=== PATIENT | male | born 1990 | race Caucasian/White ===

== ENCOUNTER 2023-04-21 18:07 | Emergency (ER) | payer BC, SELFPAY ==
[2023-04-21 18:08] VITALS: BP 140/90; PULSE 92; RESP 18; TEMP 36.3; O2SAT 100; BMI 45.2
--- NOTE | 2023-04-21 19:30 | EX.ED.GENINJ ---
HPI History of Present Illness Chief Complaint: Laceration PFSH PFSH Allergy/AdvReac Type Severity Reaction Status Date / Time No Known Allergies Allergy Verified 04/21/23 18:09 Social History Smoking Status: Never smoker EXAM Physical Exam Const Vital Signs: 04/21/23 18:08 Temperature 97.3 F L Temperature Source Temporal Pulse Rate 92 Respiratory Rate 18 Blood Pressure 140/90 H Blood Pressure Mean 106 Pulse Ox 100 Oxygen Delivery Method Room Air MDM MDM MDM Narrative Medical decision making narrative: HISTORY OF PRESENT ILLNESS: 32-year-old male here with concern for laceration. Notes mechanical fall and laceration left forearm REVIEW OF SYSTEMS: Pertinent positives: Laceration Pertinent negatives: Numbness tingling loss of sensation PHYSICAL EXAM: Nursing triage notes reviewed, Vital signs reviewed Constitutional: please see mdm Extremities: No edema Neuro: Intact 5/5 strength with ok sign (median), intact finger abduction (ulnar) intact wrist extension (radial n). Intact sensation in the radial, ulnar, and median nerve distributions. Skin: Linear laceration noted to left forearm that is superficial. MEDICAL DECISION MAKING: Chief Complaint: Laceration External records reviewed: No documented tetanus [facility] Narrative: Patient was hemodynamically stable, afebrile, nontoxic-appearing. Left mid forearm laceration was hemostatic. The patient suffered lacerations to the left mid forearm. There is no evidence to suggest foreign bodies were history and exam. Visual and tactile exams are unremarkable. There was no evidence of neurovascular injury. Patient had a normal distal vascular exam, and had full normal motor and sensory exams. There was also no evidence of tendon injury, with normal distal full range of motion, flexion, extension, abduction, abduction. There is no evidence of local joint space involvement at this time patient was irrigated with copious sterile normal saline and primary. Performed please see procedure note. The patient was given signs and symptoms warnings for infection, such as increasing pain, redness, swelling, associated heat, pus or fever. Patient was given instructions for timely follow-up for removal. Patient agreed with the plan of care Procedure: Laceration repair. The procedure was performed by myself. Indication: Wound repair Risks and benefits: risks, benefits and alternatives were discussed Consent: Consent was obtained. Wound Details: Approximate 3 cm linear laceration to the left mid forearm Anesthesia: None Wound prep: Patient was prepped and draped in the usual sterile fashion. Tetanus: Updated within 5 years Irrigation Solution: Saline Wound Preparation: Copious irrigation with tap water, chlorhexidine The wound was explored to its base in a bloodless field. Procedure Description: Approximated wound, applied Dermabond and Steri-Strips with good approximation. Patient tolerated the procedure well with no immediate complications The patient and/or family, caregivers express understanding. The patient and/or family, caregivers agrees with the plan. Total critical care time today provided was at least 0 minutes. This excludes separately billable procedures. Critical care time (if documented) is secondary to the patient having high probability of clinically significant/life threatening deterioration in the patient's condition which required my urgent intervention. Shared decision making: I will have a discussion with the patient and or visitors regarding risk/benefits of further testing or admission. They will be made aware of of the risk/benefits inherent in this decision they will be given the opportunity to voice understanding. Discharge Plan Triage Chief Complaint: Laceration ED Provider: Louie Carson Dx/Rx/DC Orders Primary Care Provider: Care Physician,No Primary Referrals: Care Physician,No Primary [Primary Care Provider] -
== END 2023-04-21 20:43 | disposition home or self-care (01) ==
PROVIDERS: Emergency Provider Emergency Medicine; Visit Provider Emergency Medicine
DX: S51.812A Laceration without foreign body of left forearm, initial encounter (principal); W19.XXXA Unspecified fall, initial encounter
CPT/HCPCS: 12002; 99282